=== PATIENT | male | born 1975 | race African-American/Black ===

== ENCOUNTER 2017-07-25 16:43 | Emergency (ER) | payer OTHER ==
[~2017-07-25] VITALS: Ht 175.3 cm; Wt 118.0 kg
[2017-07-25] MEDS ORDERED: ASPERCREME LIDOCA41 TOP (18:25)
[2017-07-25] MEDS ORDERED: MOTRIN400 MG PO (18:25)
[2017-07-25 18:30] VITALS: BP 131/81
== END 2017-07-25 18:30 | disposition home or self-care (01) | DRG 605 ==
LOC: ED 16:43
DX: S40.011A Contusion of right shoulder, initial encounter (principal); M54.5 Low back pain; V89.2XXA Person injured in unspecified motor-vehicle accident, traffic, initial encounter